=== PATIENT | male | born 1975 | race Hispanic/Latino ===

== ENCOUNTER 2016-10-01 19:57 | Inpatient (IN) | payer MEDICAID ==
--- NOTE | 2016-10-01 20:52 | ED PDOC ---
HPI: Psych/Substance Abuse Time Seen by Provider: 10/01/16 20:16 Chief Complaint (Nursing): Lower Extremity Problem/Injury Chief Complaint (Provider): Psychiatric evaluation History Per: Patient History/Exam Limitations: no limitations Onset/Duration Of Symptoms: Mins (prior to arrival) Additional Complaint(s): Nicholas Melo is a 40 year old male with previous medical history of ADHD, who presents to the emergency department for a psychiatric evaluation as per [facility] department after he came by PD for multiple vague complaints and bizarre behavior prior to arrival. Denied any nausea, vomiting, diarrhea, fever , chills, cough or shortness of breath. Upon arrival to ED, patient was asking for pain medication for his chronic back/knee pain and chest pain due to indigestion that occurs every few years. PMD: none provided Family Practice Doctor: Manuel Flores MD Past Medical History Reviewed: Historical Data, Nursing Documentation, Vital Signs Vital Signs: Last Vital Signs Temp 98 F 10/01/16 20:02 Pulse 98 H 10/01/16 20:02 Resp 16 10/01/16 20:02 BP 129/80 10/01/16 20:02 Pulse Ox 97 10/01/16 20:02 - Family History Family History: States: Unknown Family Hx - Allergies Allergies/Adverse Reactions: Allergies Allergy/AdvReac Type Severity Reaction Status Date / Time No Known Allergies Allergy Verified 10/01/16 20:02 Review of Systems ROS Statement: Except As Marked, All Systems Reviewed And Found Negative Constitutional: Negative for: Fever, Chills Cardiovascular: Positive for: Chest Pain (due to indigestion) Respiratory: Negative for: Cough, Shortness of Breath Gastrointestinal: Negative for: Nausea, Vomiting, Diarrhea Musculoskeletal: Positive for: Back Pain (chronic), Leg Pain (chronic knee pain) Physical Exam - Reviewed Nursing Documentation Reviewed: Yes Vital Signs Reviewed: Yes - Physical Exam Appears: Positive for: Non-toxic (but poor state of hygiene), No Acute Distress Head Exam: Positive for: ATRAUMATIC, NORMAL INSPECTION, NORMOCEPHALIC Cardiovascular/Chest: Positive for: Regular Rate, Rhythm Respiratory: Positive for: CNT, Normal Breath Sounds Gastrointestinal/Abdominal: Positive for: Normal Exam, Bowel Sounds, Soft. Negative for: Tenderness, Guarding, Rebound Extremity: Positive for: Normal ROM. Negative for: Pedal Edema, Deformity Neurologic/Psych: Positive for: Alert, cosmetologist II-XII, Oriented - Laboratory Results Result Diagrams: 10/01/16 20:55 10/01/16 20:55 - ECG O2 Sat by Pulse Oximetry: 97 (RA) Pulse Ox Interpretation: Normal Medical Decision Making Medical Decision Making: Initial Impression: Crisis evaluation Initial Plan: * EKG * Alcohol serum * Drug screen, urine * Crisis evaluation * Labs * Toradol 10mg IV Time: 2039 --Patient was informed of [facility]'s strict policy of prescribing nonnarcotics. Agreed to Toradol medication. Time: 2219 --Labs: no active disease. Mild hyperglycemia. --Evaluated by crisis who acquired further information. Patient has medical history of schizophrenia. Will admit to hospital for further treatment and stability. Clinical Impression: Schizophrenia Scribe Attestation: Documented by Drea Fowler, acting as a scribe for Osito Juarez MD. Provider Scribe Attestation: All medical record entries made by the Scribe were at my direction and personally dictated by me. I have reviewed the chart and agree that the record accurately reflects my personal performance of the history, physical exam, medical decision making, and the department course for this patient. I have also personally directed, reviewed, and agree with the discharge instructions and disposition. Time:2299 Re-Evaluation Patient medically stable for Psych admission Scribe Attestation: Documented by Yulissa Yanes, acting as a scribe for Osito Juarez MD. Scribe Attestation: All medical record entries made by the Scribe were at my direction and personally dictated by me. I have reviewed the chart and agree that the record accurately reflects my personal performance of the history, physical exam, medical decision making, and the department course for this patient. I have also personally directed, reviewed, and agree with the discharge instructions and disposition. Disposition - Clinical Impression Clinical Impression: Schizophrenia - Patient ED Disposition Is Patient to be Admitted: Yes - Disposition Disposition Time: 22:00 Condition: STABLE - Pt Status Changed To: Hospital Disposition Of: Inpatient - Admit Certification Admit to Inpatient:: After my assessment, the patient will require hospitalization for at least two midnights. This is because of the severity of symptoms shown, intensity of services needed, and/or the medical risk in this patient being treated as an outpatient.
[2016-10-01 21:00] LABS: BASO % 0.4 % (0.0-2.0); EOS # 0.1 K/uL (0.0-0.7); EOS % 1.5 % (0.0-4.0); HEMOGLOBIN 13.5 g/dL (12.0-18.0); LYMPH # 2.2 K/uL (1.0-4.3); LYMPH % 24.8 % (20.0-40.0); MEAN CELL VOLUME 89.8 fl (80.0-94.0); MEAN CORPUSCULAR HEMOGLOBIN 31.5 pg (27.0-31.0); MEAN CORPUSCULAR HGB CONC 35.1 g/dL (33.0-37.0); MEAN PLATELET VOLUME 9.7 fl (7.2-11.7); MONO # 0.9 K/uL (0.0-0.8); MONO % 10.7 % (0.0-10.0); NEUT # 5.5 K/uL (1.8-7.0); NEUT % 62.6 % (50.0-75.0); RBC 4.3 Mil/uL (4.40-5.90); RED CELL DISTRIBUTION WIDTH 12.9 % (11.5-14.5); WHITE BLOOD COUNT 8.8 K/uL (4.8-10.8)
[2016-10-01 21:09] LABS: ALB/GLOB RATIO 1.5 (1.0-2.1); ALBUMIN 3.9 g/dL (3.5-5.0); ALT/SGPT 16 U/L (21-72); AST/SGOT 18 U/L (17-59); BLOOD UREA NITROGEN 13 mg/dl (9-20); CALCIUM 9.1 mg/dL (8.4-10.2); GFR AFRICAN-AMERICAN > 60; GFR NON-AFRICAN AMERICAN > 60
[2016-10-01 21:18] LABS: BARBITURATES, UR NEGATIVE (NEGATIVE); BENZODIAZEPINES, UR NEGATIVE (NEGATIVE); OPIATES, UR NEGATIVE (NEGATIVE); PHENCYCLIDINE, UR NEGATIVE (NEGATIVE)
[2016-10-02] MEDS ORDERED: Magnesium Hydroxide Susp 30 ml UD PO PRN (01:02)
[2016-10-02] MEDS ORDERED: DiphenhydrAMINE 50 mg/ml Inj IM PRN (01:02)
[2016-10-02] MEDS ORDERED: Alum-Mag Hydrox-Simethicone Susp (30 mL) PO PRN (01:02)
[2016-10-02 03:54] VITALS: O2SAT 97
--- NOTE | 2016-10-02 05:35 | PCM.BM ---
<Roberta Jett - Last Filed: 10/02/16 05:33> Treatment Plan Problems - Problems identified on initial assessmt Agitated/aggressive behavior Date Initiated: 10/02/16 Time Initiated: 05:33 Assessment reference: NA Status: Active Priority: 1 Altered thought process Date Initiated: 10/02/16 Time Initiated: 05:34 Assessment reference: NA Status: Active Priority: 2 Ineffective impulse control Date Initiated: 10/02/16 Time Initiated: 05:35 Assessment reference: NA Status: Active Priority: 3 Treatment assets and liabiliti Patient Assests: ADL independent, negotiates basic needs Patient Liabilities: poor support system, medical problems - Milieu Protocol Maintain good personal hygiene: every shift Encourage regular showers, every shift Remind patient to perform daily oral care, every shift Assist patient to perform ADL's Maintain personal safety: every shift Educate patient to report safety concerns to staff, every shift Monitor environment for contraband/sharps Medication safety: Monitor for expected outcome, potential side effects: every shift, Assess barriers to learning: every shift, Assess readiness for medication education: every shift Family Contact Family contact name: Heydi- [phone] Discharge/Continuing Care - Education Needs Education Needs: Patient Medication, Patient Diagnosis/Disease Process, Patient Coping Skills, Patient Anger Management skills, Patient Placement options, Patient Community resources, Patient Activities of Daily Living, Patient Pain, Patient Nutrition, Patient Uses of Medical Equipment, Patient Health Practices/ Safety, Patient Personal Hygiene/Grooming, Patient Aftercare Safety Plan, Patient Other - Discharge Discharge Criteria: Tolerates medication w/o severe side effects, Free of agitation, Normal sleep pattern, Ability to care for self <Suki Villalobos - Last Filed: 10/03/16 11:24> Treatment assets and liabiliti Patient Assests: resourceful, ADL independent, physically healthy, negotiates basic needs Patient Liabilities: poor support system, relationship conflicts, substance abuse, legal issue Family Contact Family contact: Patient agrees to contact Family contact name: [email or web address] Family contacted how many times per week?: 1 Family contact comment: Patient requesting to have uncle contacted via email to obtain phone number. Securities Vault Supervisor will send email to [email or web address] and request that Mr Collier contact food writer to further discuss patients progress on 3NP. - Outside Agency [facility] Care involvment: Information-sharing Agency contact name: [facility] Agency contact number: [facility] Care involvment: Other (Patient is planning to relocate to [place], [place] and does not wish to continue services with [facility]. Patient agreeable to outpatient mental health services with [facility].) Agency contact name: [facility] Agency contact number: [phone] - Goals for Treatment Patient goals for treatment: Patient will continue stabilization on 3NP through medication management and group/supportive therapy for decrease in delusional/ bizzare behavior, grandiosity and lability. Patient to be provided with psychoeducation regarding benefits of compliance with follow-up to reduce risk of future hospitalizations, ensure saftey and improve functioning in the community. Discharge/Continuing Care - Education Needs Education Needs: Family Medication, Family Diagnosis/Disease Process, Family Coping Skills, Family Community resources, Family Aftercare Safety Plan, Patient Medication, Patient Diagnosis/Disease Process, Patient Coping Skills, Patient Community resources, Patient Aftercare Safety Plan - Discharge Discharge Criteria: Tolerates medication w/o severe side effects, Free of Suicidal thoughts, Free of paranoid thoughts, Free of agitation, Normal sleep pattern, Ability to care for self <Joseph Chavez - Last Filed: 10/04/16 11:35> Discharge/Continuing Care - Education Needs Education Needs: Family Medication, Family Diagnosis/Disease Process, Family Coping Skills, Family Community resources, Family Aftercare Safety Plan, Patient Medication, Patient Diagnosis/Disease Process, Patient Coping Skills, Patient Community resources, Patient Aftercare Safety Plan - Discharge Discharge to:: Home
--- NOTE | 2016-10-02 07:48 | CARD ---
APPROVED REPORT EKG Measurement Heart [id number] <Conclusion> Normal sinus rhythm Nonspecific T wave abnormality Abnormal ECG
--- NOTE | 2016-10-02 11:18 | RAD ---
HISTORY: Admission COMPARISON: None. FINDINGS: LUNGS: No active pulmonary disease. PLEURA: No significant pleural effusion identified, no pneumothorax apparent. CARDIOVASCULAR: Normal. OSSEOUS STRUCTURES: No significant abnormalities. VISUALIZED UPPER ABDOMEN: Normal. OTHER FINDINGS: None. IMPRESSION: No active disease.
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
[2016-10-02] MEDS: Risperidone M tab 1 MG PO SCH (16:36)
[2016-10-03 08:19] LABS: T4 7.79 ug/dl (5.5-11.0)
[2016-10-03] MEDS: Risperidone M tab 1 MG PO SCH ×2 (08:21→21:32)
[2016-10-03 08:42] LABS: SQUAMOUS EPITHIAL < 1 /hpf (0-5); URINE BILIRUBIN NEGATIVE (NEGATIVE); URINE BLOOD NEGATIVE (NEGATIVE); URINE CLARITY CLEAR (Clear); URINE COLOR YELLOW (YELLOW); URINE GLUCOSE (UA) NEG (Normal); URINE LEUKOCYTE ESTERASE NEG Leu/uL (Negative); URINE NITRATE NEGATIVE (NEGATIVE); URINE PROTEIN NEGATIVE (NEGATIVE); URINE UROBILINOGEN 0.2-1.0 mg/dL (0.2-1.0)
--- NOTE | 2016-10-03 09:57 | PCM.PYCHPN ---
Psychiatric Progress Note - Psychiatric Progress Note Patient seen today, length of contact: discussed with team Patient Chief Complaint: i think i'll do what you say Problems Identified/Issues Discussed: pt with disorganized thoughts. he is intrusive and grandiose. he is taking risperdal as scheduled and agrees to take medications at this time. no aggression or agitation. Medication Change: Yes Medical Record Reviewed: Yes Mental Status Examination - Cognitive Function Orientation: Person, Place, Situation, Time Memory: Intact Attention: WNL Concentration: WNL Association: WNL Decription of patient's judgement and insights: improving insight, fair judgment - Mood Mood: Other (irritable) - Affect Affect: Broad - Speech Speech: Appropriate - Formal Thought Process Formal Thought Process: Delusions, Loosening of associations Psychotic Thoughts and Behaviors: grandiose, delusional thoughts - Suicidal Ideation Suicidal Ideation: No - Homicidal Ideation Homicidal Ideation: No Goal/Treatment Plan - Goal/Treatment Plan Need for Continued Stay: Remain at risks for inpatient hospitalization, Discharge may exacerbated symptoms Progress Toward Problem(s) and Goals/Treatment Plan: schizophrenia, paranoid continue current treatment will increase medications to target psychosis Estimated Date of D/C: 10/07/16
[2016-10-04] MEDS: Risperidone M tab 1 MG PO SCH ×2 (09:54→21:03)
--- NOTE | 2016-10-04 12:08 | PCM.PYCHPN ---
Psychiatric Progress Note - Psychiatric Progress Note Patient seen today, length of contact: discussed with team Patient Chief Complaint: do you want to hear a joke? they tricked me into staying here Problems Identified/Issues Discussed: pt now accepting the fact that he has no promise of housing in [facility] and able to admit he is linked to [facility] in [place]. he is in behavioral control and denies medication side effects. pt received haldol dec last week and also was supposed to be taking depakote. he does not want to take depakote or oral haldol here and only agrees to take the risperdal. Medication Change: Yes Medical Record Reviewed: Yes Mental Status Examination - Cognitive Function Orientation: Person, Place, Situation, Time Memory: Intact Attention: WNL Concentration: WNL Association: WNL Decription of patient's judgement and insights: improving insight, fair judgment - Mood Mood: Other (irritable) - Affect Affect: Broad - Speech Speech: Appropriate - Formal Thought Process Formal Thought Process: Delusions, Loosening of associations Psychotic Thoughts and Behaviors: grandiose, delusional thoughts - Suicidal Ideation Suicidal Ideation: No - Homicidal Ideation Homicidal Ideation: No Goal/Treatment Plan - Goal/Treatment Plan Need for Continued Stay: Remain at risks for inpatient hospitalization, Discharge may exacerbated symptoms Progress Toward Problem(s) and Goals/Treatment Plan: schizophrenia, paranoid continue current treatment discharge friday and f/u with [facility] Estimated Date of D/C: 10/07/16
[2016-10-05] MEDS: Risperidone M tab 1 MG PO SCH ×2 (09:48→21:10)
--- NOTE | 2016-10-05 11:26 | PCM.PYCHPN ---
Psychiatric Progress Note - Psychiatric Progress Note Patient seen today, length of contact: discussed with team Patient Chief Complaint: can we meet and have some witty banter? Problems Identified/Issues Discussed: pt sarcastic, grandiose. no aggression or agitation. denies suicidal or homicidal thoughts. no c/o medication side effects. focused on discharge friday Medication Change: Yes Medical Record Reviewed: Yes Mental Status Examination - Cognitive Function Orientation: Person, Place, Situation, Time Memory: Intact Attention: WNL Concentration: WNL Association: WNL Decription of patient's judgement and insights: improving insight, fair judgment - Mood Mood: Other (irritable) - Affect Affect: Broad - Speech Speech: Appropriate - Formal Thought Process Formal Thought Process: Delusions, Loosening of associations Psychotic Thoughts and Behaviors: grandiose, delusional thoughts - Suicidal Ideation Suicidal Ideation: No - Homicidal Ideation Homicidal Ideation: No Goal/Treatment Plan - Goal/Treatment Plan Need for Continued Stay: Remain at risks for inpatient hospitalization, Discharge may exacerbated symptoms Progress Toward Problem(s) and Goals/Treatment Plan: schizophrenia, paranoid continue current treatment discharge friday and f/u with [facility] Estimated Date of D/C: 10/07/16
[2016-10-06] MEDS: Risperidone M tab 1 MG PO SCH (08:57)
[2016-10-06 09:17] VITALS: BP 134/67; PULSE 85; RESP 20; TEMP 97.2
--- NOTE | 2016-10-06 12:49 | PCM.PYCHDC ---
Mental Status Examination - Mental Status Examination Orientation: Person, Place, Situation, Time Memory: Intact Mood: Anxious Affect: Broad Speech: Loud Attention: WNL Concentration: WNL Association: Loose Fund of Knowledge: WNL Formal Thought Process: Delusions, Paranoia, Loosening of associations Description of patient's judgement and insight: superficial insight, questionable judgment Psychotic Thoughts and Behaviors: grandiose, delusional thoughts, appears to have fixed delusions. denies any hallucinations Suicidal Ideation: No Current Homicidal Ideation?: No Plan: pt denies any suicidal or homicidal thoughts Discharge Summary - Discharge Note Reason for Hospitalization: pt brought to ER by police for bizarre behaviors Psychiatric History (includes Medical, Family, Personal Hx): multiple admissions in [facility], and [place] Consultations:: List each consultation separately and include: 1. Reason for request. 2. Findings. 3. Follow-up Consultations: seen by medical research tech Summary of Hospital Course include:: 1. Description of specific treatment plan utilized for patients during their course of treatmen. 2. Summarize the time- course for resolution of acute symptoms and/or regressed behaviors. 3. Describe issues identified and worked on during hospitalization. 4. Describe medication utilized. 5. Describe medical problems identified and treated. 6. Reassessment of suicide risk Summary of Hospital Course: pt was brought to ER by police because of bizarre behaviors. he was c/o pain in the ER. was asking for xanax and adderall. collateral supports stated pt has schizophrenia and is prone to violence. there is a restraining order against the pt by an ex roomate. pt states he is in [place] to obtain housing and was told he could rent a studio for 600 dollars. he is evasive and bizarre. he gives sarcastic answers to questions. he states he only signed into the hospital because he was told he would get xanax and adderrall here. 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 hospital course admitted to the unit, met with treatment team. placed on routine safety protocols. medications adjusted- started on risperdal. he did get a haldol dec shot just prior to admission. he was agreeable to stay "a few days in the hospital" he presented as grandiose and intrusive and had a repertoire of fixed delusions that were partially based on real events/circumstances. he was distruptive because of his loud speech and his intrusions into conversations of others, but he was amenable to redirection. he was focused on stating the the ER people tricked him into coming to psychiatry unit and that he was only seeking treatment for his knee. when confronted with his past psych history and treatment and ACT team involvement that he initially denied, he did admit his prior treatment. he was demanding to discharge from the hospital. he was not exhibiting behaviors that seemed to place him as an immediate risk to self or others and he was agreeing to return to his [facility] providers. due to his not adhering to recommended help from the team- coordinated meds and discharge with his ACT team and other supports- he was discharged against medication advice. risks explained included rehospitalization, destabilization of mood/psychosis and lack of f/u with aftercare and the ramifications of untreated psychosis. the benefits of staying included the further treatment of his psychosis/mood and safe transition to oupt aftercare. pt was denying any si/hi at the time of discharge and his psychotic symptoms appeared to be as his baseline - Final Diagnosis (DSM 5) Condition upon Discharge: STABLE DSM 5: schizoaffective bipolar type Disposition: AGAINST MEDICAL ADVICE Follow-up Treatment Plan: follow up with act team pt was discharged against medical advice he refused to start his haldol, depakote and cogentin he was supposed to take as an outpt call 911 if any suicidal or homicidal thoughts do not use alcohol, tobacco or other illicit substances no medications given as pt states he would get his proper meds from ACT team - Smoking Cessation Smoking Cessation Medication prescribed: No - Antipsychotic Medications Pt discharged on 2 or more routine antipsychotic medications: No
== END 2016-10-06 13:46 | disposition left against medical advice (07) | DRG 430 ==
LOC: H.ER 19:57 → H.ERHOLD 22:20 → H.PSYCH 10-02 00:55
PROVIDERS: ADMIT Psychiatry & Neurology Psychiatry; ATTEND Psychiatry & Neurology Psychiatry
PROC: GZHZZZZ Group Psychotherapy (ICD-10-PCS; principal; 2016-10-01)
PROC: GZ58ZZZ Individual Psychotherapy, Cognitive-Behavioral (ICD-10-PCS; 2016-10-01)
DX: F20.0 Paranoid schizophrenia (principal); F12.10 Cannabis abuse, uncomplicated; F90.9 Attention-deficit hyperactivity disorder, unspecified type; E11.9 Type 2 diabetes mellitus without complications; F17.210 Nicotine dependence, cigarettes, uncomplicated